=== PATIENT | female | born 1985 | race Caucasian/White ===

== ENCOUNTER 2018-09-08 23:06 | Emergency (ER) | payer OTHER ==
[2018-09-09 00:05] LABS: #Eosinphils 0.1 thou/uL (0.0-0.7); #Lymphocytes 2.3 thou/uL (1.20-3.40); #Monocytes 0.4 thou/uL (0.11-0.59); #Neutrophils 5.6 thou/uL (1.40-6.50); %Basophils 0.2 % (0.0-1.0); %Eosinophils 0.7 % (0.0-10.0); %Lymphocytes 27.2 % (21.0-51.0); %Monocytes 4.7 % (0.0-10.0); %Neutrophils 67.2 % (42.0-75.0); Hemoglobin 11.6 g/dL (12.0-16.0); Mean Corpuscular HGB CONC 34.4 g/dL (32.0-36.0); Mean Corpuscular Hemoglobin 29.3 pg (27.0-31.0); Mean Corpuscular Volume 85.1 fL (78.0-98.0); Mean Platelet Volume 7.1 fL (7.4-10.4); Platelet Count 261 thou/uL (130-400); RBC Distribution Width 13.2 % (11.5-14.5); Red Blood Cell (RBC) Count 3.95 mill/uL (4.20-5.40); White Blood Cell (WBC) Count 8.3 thou/uL (4.8-10.8)
[2018-09-09 01:17] LABS: Bilirubin Negative (Negative); Blood, Urine Moderate (Negative); Clarity CLEAR (Clear); Glucose, Urine (Dipstick) Negative (Negative); Leukocyte Small (Negative); Nitrite Negative (Negative); Protein, Urine (Dipstick) Negative (Neg-Trace); Specific Gravity, Urine 1.012 (1.002-1.036); Urobilinogen 0.2 mg/dL (0.2-1.0)
[2018-09-09 01:20] LABS: Bacteria/HPF Rare-Few HPF (None Seen); Hyaline Casts/LPF 0-3 HYALINE CAST LPF (0-3 Hyaline); Squamous Epithelial 0-3 HPF (0-3)
--- NOTE | 2018-09-09 07:42 | ULT ---
PELVIC ULTRASOUND WITH BLOOD SCALE AND DOPPLER COLOR FLOW IMAGING: Date: 09/09/18 CLINICAL HISTORY: Pelvic pain, vaginal bleeding. FINDINGS: There is evidence of an early, live intrauterine gestation, which by ultrasound imaging corresponds t o a 14 week and 4 day gestation. This places date of delivery by ultrasound at 03/06/19. Stated clini lindsay dates are 13 weeks. The gestation is demonstrated in a transverse lie on the provided views and t he placenta is located anteriorly. ALISHA is subjectively normal in volume. There is evidence to indicat e placenta previa with placental tissue seen traversing the site of the internal os. cardiac activity is documented at 152 beats/minute. IMPRESSION: 1. Live intrauterine gestation as discussed above. 2. There is evidence to indicate placenta previa. Recommend continued imaging follow-up. CODE T. POS: NWK
== END 2018-09-09 03:04 | disposition home or self-care (01) ==
LOC: ERS 23:06
DX: O20.0 Threatened abortion (principal); O44.11 Complete placenta previa with hemorrhage, first trimester; Z3A.13 13 weeks gestation of pregnancy
CPT/HCPCS: 36415; 76856; 81003; 81015; 84702; 85025; 86900; 86901; 90384; 96372

== ENCOUNTER 2018-10-14 10:52 | Outpatient (CLI) | payer OTHER ==
--- NOTE | 2018-10-14 13:32 | ULT ---
ULTRASOUND OBSTETRICAL COMPLETE: DATE: 10/14/18 HISTORY: 33-year-old female follow-up placenta previa and evaluate anatomy. FINDINGS: number: [place]. lie: Transverse. Maternal cervix: 5.5 cm in length and closed. Placenta: Anterior. No placenta previa. The previously demonstrated placenta covering the internal ce rvical os has now migrated superiorly, such that the distal tip of the placenta is approximately 5.5 cm from the internal os. Amniotic fluid volume: Subjectively within normal limits. heart rate: 144 bpm. The following anatomy is visualized, with no evidence of anomalies: Urinary bladder, stomach, spine, head, upper limbs, and lower limbs. The rest of the anatomy is very poorly visualized because of maternal body habitus. biometry: Head circumference (HC): 16.7 cm 19w 3d Biparietal diameter (BPD): 4.4 cm 19w 2d Abdominal circumference (AC): 14.2 cm 19w 4d Femur length (FL): 3.1 cm 19w 4d Average ultrasound age (AUA): 19w 2d. Estimated date of delivery (JAYLON): 03/08/2019. Last menstrual period (LMP): 06/10/2018. Gestational age by LMP: 18w 0d. Estimated weight (EFW): 299 g +/- 44 g (0 lb 11 oz +/- 2 oz). IMPRESSION: 1. Live second trimester intrauterine gestation. 2. Estimated gestational age of 19 weeks, 2 days. 3. Transverse lie. 4. Interval resolution of the placenta previa after superior migration of the anterior placenta. 5. Poor visualization of anatomy due to maternal body habitus. AMANDA Aggarwal POS: VERNONC
== END 2018-10-14 10:53 | disposition home or self-care (01) ==
LOC: ULT 10:52
PROVIDERS: ATTEND Family Medicine
DX: Z34.82 Encounter for supervision of other normal pregnancy, second trimester (principal); Z3A.19 19 weeks gestation of pregnancy; O32.2XX0 Maternal care for transverse and oblique lie, not applicable or unspecified
CPT/HCPCS: 76805

== ENCOUNTER 2018-11-28 12:51 | Outpatient (CLI) | payer OTHER | END 2018-11-28 12:52 | disposition home or self-care (01) | LOC: ULT 12:51 | PROVIDERS: ATTEND Family Medicine | DX: R00.2 Palpitations (principal); I08.8 Other rheumatic multiple valve diseases | CPT/HCPCS: 93306 ==

== ENCOUNTER 2019-01-30 06:31 | Outpatient (CLI) | payer OTHER ==
--- NOTE | 2019-01-30 07:49 | ULT ---
EXAM: OB ultrasound COMPARISON: None HISTORY: female with size greater than dates. TECHNIQUE: Multiplanar grayscale and color Doppler images were obtained in a transabdominal ult rasound. FINDINGS: There is a single live intrauterine with heart rate of 140 bpm. A survey wa s performed which is unremarkable. Estimated weight is 3250 g. Average age of the fetus based off today's examination is 37 weeks 6 days. BPD 9.30 cm -- 37 weeks 6 days HC 34.35 cm -- 39 weeks 5 days AC 34.25 cm -- 38 weeks 2 days FL 6.84 cm -- 35 weeks 1 day The placenta is anterior in location without focal abnormality. ALISHA is 29.35 cm which is normal. The cervix is normal in length. There is no evidence of placenta previa. IMPRESSION: 1. Single live intrauterine with estimated age of 37 weeks 6 days. There is slight discrepa ncy in the biometric measurements but these are still within normal limits per standard deviations. 2. Prominent amniotic fluid volume
== END 2019-01-30 06:32 | disposition home or self-care (01) ==
LOC: BICULT 06:31
PROVIDERS: ATTEND Family Medicine
DX: O24.415 Gestational diabetes mellitus in pregnancy, controlled by oral hypoglycemic drugs (principal); Z3A.37 37 weeks gestation of pregnancy
CPT/HCPCS: 76805

== ENCOUNTER 2019-02-03 19:35 | Inpatient (IN) | payer OTHER ==
[2019-02-03 20:05] VITALS: BMI 45.6
[2019-02-03] MEDS ORDERED: Lactated Ringer's 1,000 ML IV SCH (20:15)
--- NOTE | 2019-02-03 20:17 | PDOC.LDHP ---
Labor and Delivery H&P Chief complaint: contractions HPI: 33 y/o at 34w0d, patient of Dr. Isabella Crawford, presents with contractions and pressure since 11am. Denies VB, LOF, or decreased FM. Had an ultrasound Wednesday and baby is measuring 38 weeks with polyhydramnios. ROS neg for HEENT, CV, pulm, GI, , neuro, psych, skin, musculoskeletal, or constitutional symptoms other than mentioned above. OB History Details: Hx gestational HTN with previous 2 prior SVDs Current complications: gestational diabetes, other (polyhydramnios) Past Medical History: HSV - last outbreak in October. Denies prodromal symptoms Current medications: pre-rosalie vitamins, other (ASA 81mg, Acyclovir) Previous surgical history: none Allergies/Adverse Reactions: Allergies Allergy/AdvReac Type Severity Reaction Status Date / Time No Known Drug Allergies Allergy Verified 02/03/19 20:07 Social history: none - Physical Exam Abnormal vital signs: normal to mild range BPs General: NAD, resting Lungs: nonlabored breathing Abdomen: gravid Extremeties: no edema FHT: category 1 (140s, mod variability, + accels, no decels) [place] contractions every: 2-3 mins - Vaginal Exam cm dilated: 3 (vtx, no visible HSV lesions) Effacement: 50% Station: -3 - OB Labs Blood type: A RH: negative Antibody Screen: negative GBS: positive - Assessment L&D Assessment: labor - Plan Plan: admit to L&D, GBS antibiotic prophylaxis -: PIH labs pending If blood sugars are reasonable, will give celestone Continue to monitor.
[2019-02-03 20:18] LABS: #Basophils 0.1 thou/uL (0.0-0.2); #Eosinphils 0.1 thou/uL (0.0-0.7); #Lymphocytes 1.8 thou/uL (1.20-3.40); #Monocytes 0.6 thou/uL (0.11-0.59); #Neutrophils 7.1 thou/uL (1.40-6.50); %Basophils 0.7 % (0.0-1.0); %Lymphocytes 18.8 % (21.0-51.0); %Monocytes 5.9 % (0.0-10.0); %Neutrophils 73.6 % (42.0-75.0); Hemoglobin 11.9 g/dL (12.0-16.0); Mean Corpuscular HGB CONC 35.8 g/dL (32.0-36.0); Mean Corpuscular Hemoglobin 32.6 pg (27.0-31.0); Mean Corpuscular Volume 90.9 fL (78.0-98.0); Mean Platelet Volume 7.7 fL (7.4-10.4); Platelet Count 244 thou/uL (130-400); RBC Distribution Width 15.2 % (11.5-14.5); Red Blood Cell (RBC) Count 3.65 mill/uL (4.20-5.40); White Blood Cell (WBC) Count 9.7 thou/uL (4.8-10.8)
[2019-02-03] MEDS ORDERED: Ondansetron PF 4 MG/2 ML Vial IVP PRN (20:33)
[2019-02-03] MEDS ORDERED: hydrALAZINE 20 MG/ML VIAL SLOW IVP PRN (20:33)
[2019-02-03] MEDS ORDERED: Acetaminophen 500 MG TAB PO PRN (20:33)
[2019-02-03] MEDS ORDERED: Promethazine HCl 25 MG/ML VIAL IM PRN (20:33)
[2019-02-03] MEDS ORDERED: Misoprostol 200 MCG TAB PR PRN (20:39)
[2019-02-03] MEDS ORDERED: Diphenoxylate HCl/Atropine Tablet PO PRN ×2 (20:39)
[2019-02-03] MEDS ORDERED: NS / Oxytocin 40 units/1000ml 1,000 ML IV PRN (20:39)
[2019-02-03] MEDS ORDERED: Ibuprofen 800 MG TAB PO PRN (20:39)
[2019-02-03] MEDS ORDERED: Lidocaine 1% (PF) 30 ML VIAL SC PRN (20:39)
[2019-02-03] MEDS ORDERED: HYDROcodone/Acetaminophen 5/325 mg Tablet PO PRN ×2 (20:39)
[2019-02-03] MEDS ORDERED: Carboprost 250 MCG/ML AMP IM PRN (20:39)
[2019-02-03] MEDS ORDERED: Penicillin G Potassium 5 MILL.UNITS in Sodium Chloride 0.9% 100 ML IVPB SCH (20:45)
[2019-02-03 20:49] LABS: ALT (SGPT) 10 U/L (8-55); AST (SGOT) 12 U/L (5-34); Albumin 3.4 g/dL (3.5-5.0); Alkaline Phosphatase 84 U/L (40-150); Anion Gap 15 mmol/L (10-20); BUN (Urea Nitrogen) 10 mg/dL (7.0-18.7); Bilirubin, Total 0.4 mg/dL (0.2-1.2); Calc. Creatinine Clearance 253 mL/min (70-130); Calcium 9.1 mg/dL (7.8-10.44); Carbon Dioxide 18 mmol/L (22-29); Chloride 105 mmol/L (98-107); Estimated GFR-MDRD Greater than 90; Globulin 3.2 g/dL (2.4-3.5); Glucose 109 mg/dL (70-105); Potassium 3.8 mmol/L (3.5-5.1); Protein, Total 6.6 g/dL (6.0-8.3); Sodium 134 mmol/L (136-145)
[2019-02-03 20:59] LABS: Creatinine, Urine 182.76 mg/dL (47-110)
[2019-02-03] MEDS: Betamet Acet/Betamet Na Ph 30 MG/5 ML VIAL IM SCH (21:14)
[2019-02-03] MEDS ORDERED: Butorphanol Tartrate 1 MG/ML VIAL SLOW IVP PRN (22:37)
[2019-02-03 22:40] LABS: Syphilis Antibody Nonreactive (Nonreactive); Syphilis Antibody Index 0.09 S/CO (<1.00 Non-Reactive)
[2019-02-03] MEDS: Lactated Ringer's 1,000 ML IV SCH (22:55)
[2019-02-03 23:51] LABS: HBSAg Index 0.24 S/CO (0-0.99); Hep B Surf Ag Non-Reactive S/CO (NonReactive)
[2019-02-04] MEDS ORDERED: Terbutaline Sulfate 1 MG/ML VIAL SC SCH (01:00)
[2019-02-04] MEDS: Penicillin G 2.5 MILL.units 2.5 MILL.UNITS in Premix Bag 1 BAG IVPB SCH ×5 (01:02→21:15)
--- NOTE | 2019-02-04 07:18 | PDOC.EVN ---
Event Note - Event Note Event Note: Patient reports her ctx have slowed down overnight but still has periods of regular, painful ctx. Denies VB, LOF, or other concerns. AFVSS, 1 severe range BP overnight was noted to have cuff over elbow. Repeats all normal. Gen - AAO, NAD Abd - soft, NTTP Ext - no edema A/P: Will receive second dose of steroids this evening. Continue to monitor. Will repeat SVE if necessary. If no change, will consider d/c PCN for now.
[2019-02-04] MEDS: Lactated Ringer's 1,000 ML IV SCH (07:36)
[2019-02-04] MEDS ORDERED: metFORMIN 500 MG TAB PO SCH (08:00)
--- NOTE | 2019-02-04 08:19 | PDOC.EVN ---
Event Note - Event Note Event Note: Patient having painful ctx, felt that Stadol did not help. Will give 1 dose of terbutaline for symptomatic treatment.
--- NOTE | 2019-02-04 08:31 | PDOC.EVN ---
Event Note - Event Note Event Note: S: Reviewed plan of care with patient. Still feeling contractions but not making change and able to hold a conversation through them without difficulty. All questions answered. O: VSS Glucose: 122 0600 FHT: baseline 130, accels present, good variability [place]: cxs q 2-4 A/P Will check a1c 2/2 macrosomia, 3250g at 34 weeks 2nd dose of celestone will be tonight, will check sugars throughout the day increased metformin to 500mg BID will monitor sugars closely throughout the day, consistent carb diet /-3 at 0730, no change
[2019-02-04 09:10] LABS: Hemoglobin A1c 4.8 % (4.0-6.0)
[2019-02-04] MEDS: metFORMIN 500 MG TAB PO SCH ×2 (09:31→19:08)
--- NOTE | 2019-02-04 19:12 | PDOC.EVN ---
Event Note - Event Note Event Note: OBGYN No new complaints, some few CTX Sugars stable FHTs wnl Next celestone this PM Likely home tomorrow AM
[2019-02-04] MEDS: Betamet Acet/Betamet Na Ph 30 MG/5 ML VIAL IM SCH (21:22)
--- NOTE | 2019-02-04 21:52 | PDOC.EVN ---
Event Note - Event Note Event Note: Sugar check: Sugars ok
[2019-02-05 03:05] VITALS: BP 133/68; TEMP 98.3
--- NOTE | 2019-02-05 06:15 | PDOC.EVN ---
Event Note - Event Note Event Note: 02/05/19 DC note 0615 APU2 Patient seen at bedside. BPs ok Sugars ok OK for discharge to home Metformin to continue at 500mg po BID F/U with Isabella Salgado in one week DX: Arrested PTL at 34 weeks Gestational DM Obesity Early macrosomia/polyhydramnios Disposition: Home, f/u one week Discharge dictation done
--- NOTE | 2019-02-05 06:28 | DIS ---
DATE OF ADMISSION: 02/03/2019 DATE OF DISCHARGE: 02/05/2019 This is a patient of Dr. Isabella Crawford. PRINCIPAL DIAGNOSES: 1. Gestational hypertension on metformin. 2. Arrested labor. 3. Multigravida. 4. Suspected early macrosomia. PRINCIPAL PROCEDURES: External monitoring and steroid administration for lung maturation. IN BRIEF/HOSPITAL COURSE: This is a 33-year-old, G3, P2, who was admitted at 34 weeks 0 days, who is a patient of Dr. Isabella Crawford, who presented with contractions with Dr. Tegan Blackburn. She denied leakage of fluid or vaginal bleeding, but it is important to note that she had a recent ultrasound that showed the baby was measuring 38 weeks with polyhydramnios. The baby was weighing 3250 g, which is over 90th percentile. She does have a history of 2 prior vaginal deliveries and also has a history of gestational hypertension with the past . She has a history of HSV with the last outbreak in October, that is herpes simplex virus, but she denies any current prodromal symptoms. Other medications, although include aspirin at 81 mg, and she does take acyclovir. When she was admitted, her cervical exam was about 3 to 4 cm, 50% effaced, -3 station. She was admitted for steroid administration. To cover the glycemic effect of the steroids, her metformin, which was 500 mg once a day was increased to 500 mg twice a day. She was told to continue this for a week after discharge. I evaluated the patient both on 02/04/2019, and 02/05/2019, as she stayed in Labor and Delivery. On 02/05/2019, she was comfortable with decreased contractions and no evidence of bleeding or leakage of fluid. The plan was to send her home on 02/05/2019, at about 8 in the morning. DISCHARGE MEDICATIONS: Include her metformin 500 mg b.i.d. to continue at a twice a day dosing for 1 week and then return to once a day dosing as was originally scheduled by Dr. Crawford. DISPOSITION: Will be to home to follow up with Dr. Crawford in 1 week. She is also to check her sugars at home as she is already doing. In brief, this is the patient with arrested labor at over 34 weeks, sent home at 34 weeks 2 days with no evidence of labor progress. Blood pressures were normal during this admission. She does have a fetus that is early macrosomic with an estimated weight of 3250 g and polyhydramnios. This was also reviewed with her. Job ID: [id number]
== END 2019-02-05 06:35 | disposition home health service (06) | DRG 832 ==
LOC: L&D/OP 19:35 → L&D 21:31
PROVIDERS: ADMIT Family Medicine; ATTEND Family Medicine
PROC: 4A1HX4Z Monitoring of Products of Conception, Cardiac Electrical Activity, External Approach (ICD-10-PCS; principal; 2019-02-03)
DX: O60.03 Preterm labor without delivery, third trimester (principal); O98.513 Other viral diseases complicating pregnancy, third trimester; O24.415 Gestational diabetes mellitus in pregnancy, controlled by oral hypoglycemic drugs; O36.63X0 Maternal care for excessive fetal growth, third trimester, not applicable or unspecified; O40.3XX0 Polyhydramnios, third trimester, not applicable or unspecified; O99.820 Streptococcus B carrier state complicating pregnancy; B00.9 Herpesviral infection, unspecified; O99.213 Obesity complicating pregnancy, third trimester; E66.9 Obesity, unspecified; Z3A.34 34 weeks gestation of pregnancy
CPT/HCPCS: 36415; 36416; 80053; 82570; 83036; 84156; 85025; 86780; 86850; 86900; 86901; 87340; 99285; J0595; J0702; J2540; J3105; J3490

== ENCOUNTER 2019-02-13 14:36 | Inpatient (IN) | payer OTHER ==
[2019-02-13 15:08] VITALS: TEMP 98.9; BMI 45.7
[2019-02-13] MEDS ORDERED: HYDROcodone/Acetaminophen 5/325 mg Tablet PO PRN ×2 (15:30)
[2019-02-13] MEDS ORDERED: NS / Oxytocin 40 units/1000ml 1,000 ML IV PRN (15:30)
[2019-02-13] MEDS ORDERED: Ibuprofen 800 MG TAB PO PRN (15:30)
[2019-02-13] MEDS ORDERED: Lidocaine 1% (PF) 30 ML VIAL SC PRN (15:30)
[2019-02-13] MEDS ORDERED: Penicillin G Potassium 5 MILL.UNITS in Sodium Chloride 0.9% 100 ML IVPB SCH (15:30)
[2019-02-13] MEDS ORDERED: hydrALAZINE 20 MG/ML VIAL SLOW IVP PRN (15:30)
[2019-02-13] MEDS ORDERED: Ondansetron PF 4 MG/2 ML Vial IVP PRN (15:30)
[2019-02-13] MEDS ORDERED: Butorphanol Tartrate 1 MG/ML VIAL SLOW IVP PRN (15:30)
[2019-02-13] MEDS ORDERED: Promethazine HCl 25 MG/ML VIAL IM PRN (15:30)
--- NOTE | 2019-02-13 15:40 | PDOC.LDHP ---
Labor and Delivery H&P HPI: Patient of Isabella Salgado has requested the oncall OBGYN manage this admission CC: contractions at 35 weeks 3 days HPI: 33 yo at 35 weeks who was recently admitted 02/03-02/05 for same ( CTXs...was 3cm then). She receieved steroids last admission. HX GDM and was on metformin 500mg po BID to cover dstick changes from steroids. She has a history of herpes as well, on valtrex..no recent outbreak or symptoms.Sge was seen in office with Damian and was noted to be zoila. Sent for observation to L& D. No LOF Review of Systems: complete ROS completed and as per HPI Current gestational age (weeks): 35 (3 days) Dating criteria: last menstrual period Grav: 3 Para: 2 OB History Details: x 2 Current complications: gestational diabetes (on metformin) Current medications: pre-rosalie vitamins, other (metformin, low dose ASA, valtrex ) Allergies/Adverse Reactions: Allergies Allergy/AdvReac Type Severity Reaction Status Date / Time No Known Drug Allergies Allergy Verified 02/13/19 15:03 Social history: none - Physical Exam Vital signs reviewed and normal: yes General: NAD Heart: RRR Lungs: CTAB Abdomen: gravid Extremeties: no edema FHT: category 1 [place] contractions every: irregular, every 3-5 minutes - Vaginal Exam cm dilated: 3 Effacement: 50% Station: -3 - Assessment Threatened labor at 35 weeks 3 days; GDM, HX HSV...s/p steroids in past - Plan Plan: observation in L&D (we will observe for 23 hours. If no cervical change, may consider continued outpateint care. Continue Metformin 500mg po now Qd (was once a day). Follow BPs. Steroids already given.)
--- NOTE | 2019-02-13 15:47 | PDOC.EVN ---
Event Note - Event Note Event Note: Medication note: Will use metformin 500mg po BID
--- NOTE | 2019-02-13 16:08 | PDOC.EVN ---
Event Note - Event Note Event Note: SONO FROM 01/30: EFW was 94680 grams...thats 97% ALISHA...last sono: 29 (poly) If labors, would allow delivery as under 4500grams and ...need NICU at delivery. I will see if HbAic was done
--- NOTE | 2019-02-13 16:13 | PDOC.EVN ---
Event Note - Event Note Event Note: Hbaic friom 01/30/19 was 4.8 All this was discussed with her at bedside DX: baby early macrosomia GDM...on metformin (500 mg po BID) Valtrex to continue..for sxs HSV...last was october Polyhydramnios
[2019-02-13] MEDS: Lactated Ringer's 1,000 ML IV SCH ×2 (16:57→20:26)
[2019-02-13] MEDS ORDERED: metFORMIN 500 MG TAB PO SCH (17:00)
[2019-02-13 17:01] LABS: Hemoglobin 12.9 g/dL (12.0-16.0); Mean Corpuscular HGB CONC 36.3 g/dL (32.0-36.0); Mean Corpuscular Hemoglobin 33.1 pg (27.0-31.0); Mean Corpuscular Volume 91.1 fL (78.0-98.0); Mean Platelet Volume 8.1 fL (7.4-10.4); Platelet Count 252 thou/uL (130-400); RBC Distribution Width 15.6 % (11.5-14.5); Red Blood Cell (RBC) Count 3.89 mill/uL (4.20-5.40); White Blood Cell (WBC) Count 9.3 thou/uL (4.8-10.8)
[2019-02-13 17:20] LABS: Glucose Accucheck Confirmation 77 mg/dl (70-105)
[2019-02-13 17:41] LABS: HBSAg Index 0.52 S/CO (0-0.99); HIV (1/2) Antibody/Antigen Non-Reactive (NonReactive); HIV 1/2 INDEX 0.08 S/CO (<1.00); Hep B Surf Ag Non-Reactive S/CO (NonReactive)
[2019-02-13 17:42] LABS: Syphilis Antibody Nonreactive (Nonreactive); Syphilis Antibody Index 0.09 S/CO (<1.00 Non-Reactive)
[2019-02-13 18:05] VITALS: BP 128/79
[2019-02-13] MEDS: Penicillin G 2.5 MILL.units 2.5 MILL.UNITS in Premix Bag 1 BAG IVPB SCH (21:44)
[2019-02-14] MEDS: Penicillin G 2.5 MILL.units 2.5 MILL.UNITS in Premix Bag 1 BAG IVPB SCH (02:46)
--- NOTE | 2019-02-14 06:44 | PDOC.EVN ---
Event Note - Event Note Event Note: DISCHARGE NOTE Admit date: 02/13/19 Discharge date: 02/14/19 Procedures: Nonstress test monitoring Labor observation Diagnosis: Gestational DM on medications Early macrosomia Polyhidramniois History genital herpes Threatened labor (arrested at 3cm) COURSE: Patient was admitted 02/13/19 for labor observation at 35 weeks. She was 3cm dilated which was the same as 02/03/19 but was kept due to polyhydramnios and early macrosomia. Recheck after overnight observation revealed no cervical progress, at 3cm. No Leakage of fluid, no vaginal bleeding noted. Steroids had been given previously. NST was reactive. Prior hemogobin A1c was normal at 4.8. Plan was to DC home with follow up with her provider in 48 hours.
== END 2019-02-14 07:00 | disposition home or self-care (01) | DRG 832 ==
LOC: L&D/OP 14:36 → L&D 17:58
PROVIDERS: ADMIT Family Medicine; ATTEND Family Medicine
DX: O60.03 Preterm labor without delivery, third trimester (principal); O98.513 Other viral diseases complicating pregnancy, third trimester; O99.820 Streptococcus B carrier state complicating pregnancy; O24.415 Gestational diabetes mellitus in pregnancy, controlled by oral hypoglycemic drugs; B00.9 Herpesviral infection, unspecified; O36.63X0 Maternal care for excessive fetal growth, third trimester, not applicable or unspecified; O40.3XX0 Polyhydramnios, third trimester, not applicable or unspecified; Z3A.35 35 weeks gestation of pregnancy
CPT/HCPCS: 36415; 36416; 82947; 83036; 85025; 86780; 86850; 86900; 86901; 87340; 87389; 99285; J2540; J3490

== ENCOUNTER 2019-02-28 04:45 | Inpatient (IN) | payer OTHER ==
[2019-02-28 05:15] VITALS: BMI 45.1
[2019-02-28] MEDS ORDERED: Penicillin G Potassium 5 MILL.UNITS VIAL ONE (05:17)
[2019-02-28 05:39] LABS: Mean Corpuscular HGB CONC 33.5 g/dL (32.0-36.0); Mean Corpuscular Hemoglobin 31.1 pg (27.0-31.0); Mean Corpuscular Volume 92.8 fL (78.0-98.0); Mean Platelet Volume 8.2 fL (7.4-10.4); Platelet Count 244 thou/uL (130-400); RBC Distribution Width 15.1 % (11.5-14.5); Red Blood Cell (RBC) Count 4.16 mill/uL (4.20-5.40)
[2019-02-28] MEDS ORDERED: Fentanyl 4 mcg/Bup 0.1% Cadd 100 ML ONE (05:40)
[2019-02-28] MEDS ORDERED: Lidocaine 1.5%/Epinephrine 1:200,000 5 ML AMPUL IJ ONE (05:57)
[2019-02-28] MEDS ORDERED: Penicillin G Potassium 5 MILL.UNITS in Sodium Chloride 0.9% 100 ML IVPB SCH (06:00)
[2019-02-28] MEDS ORDERED: Lidocaine 1% (PF) 30 ML VIAL SC PRN (06:00)
[2019-02-28] MEDS ORDERED: NS w/ Oxytocin 10 units 500 ML IV SCH ×2 (06:00)
[2019-02-28] MEDS ORDERED: Lactated Ringer's 1,000 ML IV SCH ×2 (06:01)
[2019-02-28] MEDS ORDERED: Butorphanol Tartrate 1 MG/ML VIAL SLOW IVP PRN (06:01)
[2019-02-28] MEDS ORDERED: Promethazine HCl 25 MG/ML VIAL IM PRN ×2 (06:01→06:42)
[2019-02-28] MEDS ORDERED: hydrALAZINE 20 MG/ML VIAL SLOW IVP PRN ×2 (06:01→15:17)
[2019-02-28] MEDS ORDERED: Ondansetron PF 4 MG/2 ML Vial IVP PRN ×3 (06:01→15:17)
[2019-02-28 06:15] LABS: Syphilis Antibody Nonreactive (Nonreactive); Syphilis Antibody Index 0.11 S/CO (<1.00 Non-Reactive)
[2019-02-28 06:18] LABS: HBSAg Index 0.27 S/CO (0-0.99); Hep B Surf Ag Non-Reactive S/CO (NonReactive)
[2019-02-28] MEDS ORDERED: Naloxone HCl 0.4 mg/ml Vial IVP PRN ×2 (06:42)
[2019-02-28] MEDS ORDERED: Lactated Ringer's 500 ML IV PRN (06:42)
[2019-02-28] MEDS ORDERED: diphenhydrAMINE 50 MG/ML VIAL IVP PRN (06:42)
[2019-02-28] MEDS ORDERED: ePHEDrine/0.9% NaCl/PF SYRINGE 50 mg/10 ml SLOW IVP PRN (06:42)
[2019-02-28] MEDS ORDERED: Acetaminophen 325 MG TAB PO PRN (06:42)
[2019-02-28] MEDS ORDERED: Fentanyl 4 mcg/Bupivacaine 0.1% Cassette 100 ML EPIDURAL SCH (06:45)
[2019-02-28] MEDS ORDERED: Communication Order-Pharmacy FS SCH (06:45)
[2019-02-28] MEDS ORDERED: Penicillin G 2.5 MILL.units 50 ML ONE (09:45)
[2019-02-28] MEDS: Penicillin G Potassium 2.5 MILL.UNITS in Sodium Chloride 0.9% 100 ML IVPB SCH ×2 (09:46→17:51)
[2019-02-28] MEDS ORDERED: Carboprost 250 MCG/ML AMP ONE (13:13)
[2019-02-28] MEDS ORDERED: NS / Oxytocin 40 units/1000ml 1,000 ML ONE ×3 (13:13→15:48)
[2019-02-28] MEDS ORDERED: Methylergonovine 0.2 MG/ML VIAL ONE (13:14)
[2019-02-28] MEDS ORDERED: Misoprostol 200 MCG TAB ONE (13:14)
[2019-02-28] MEDS ORDERED: HYDROcodone/Acetaminophen 5/325 mg Tablet PO PRN (15:17)
[2019-02-28] MEDS ORDERED: Bisacodyl 10 MG SUPP PR PRN (15:17)
[2019-02-28] MEDS ORDERED: Benzocaine-Menthol 82.5 ML CAN TOP PRN (15:17)
[2019-02-28] MEDS ORDERED: NS / Oxytocin 40 units/1000ml 1,000 ML IV SCH (15:17)
[2019-02-28] MEDS ORDERED: Milk Of Magnesia 30 ML UDCUP PO PRN (15:17)
[2019-02-28] MEDS ORDERED: Preparation H Ointment 28 GM TUBE PR PRN (15:17)
[2019-02-28] MEDS ORDERED: Acetaminophen/Codeine 30-300mg Tablet PO PRN (15:17)
[2019-02-28] MEDS ORDERED: diphenhydrAMINE 25 MG CAP PO PRN (15:17)
[2019-02-28] MEDS ORDERED: Lanolin Ointment 7 GM TUBE TOP PRN (15:17)
[2019-02-28] MEDS: Ferrous Sulfate 325 MG TAB PO SCH (17:50)
[2019-02-28] MEDS: Prenatal Vitamin 1 TAB PO SCH (17:50)
[2019-02-28] MEDS: Docusate Calcium (SURFAK) 240 MG CAP PO SCH ×2 (17:50→21:10)
[2019-02-28] MEDS: Ibuprofen 800 MG TAB PO SCH (18:05)
[2019-03-01] MEDS: Ibuprofen 800 MG TAB PO SCH ×4 (00:02→21:56)
[2019-03-01] MEDS: Ferrous Sulfate 325 MG TAB PO SCH ×2 (07:56→16:24)
[2019-03-01] MEDS: Prenatal Vitamin 1 TAB PO SCH (08:52)
[2019-03-01] MEDS: Docusate Calcium (SURFAK) 240 MG CAP PO SCH ×2 (08:52→21:56)
[2019-03-02 03:58] VITALS: TEMP 98.2
[2019-03-02] MEDS: Ibuprofen 800 MG TAB PO SCH (05:29)
[2019-03-02] MEDS: Ferrous Sulfate 325 MG TAB PO SCH (07:49)
[2019-03-02 08:24] VITALS: BP 129/75
[2019-03-02] MEDS: Docusate Calcium (SURFAK) 240 MG CAP PO SCH (11:23)
[2019-03-02] MEDS: Prenatal Vitamin 1 TAB PO SCH (11:23)
== END 2019-03-02 11:15 | disposition home or self-care (01) | DRG 806 ==
LOC: L&D/OP 04:45 → L&D 06:11 → 3SW 17:28
PROVIDERS: ADMIT Family Medicine; ATTEND Family Medicine
PROC: 10E0XZZ Delivery of Products of Conception, External Approach (ICD-10-PCS; principal; 2019-02-28)
PROC: 0HQ9XZZ Repair Perineum Skin, External Approach (ICD-10-PCS; 2019-02-28)
DX: O24.425 Gestational diabetes mellitus in childbirth, controlled by oral hypoglycemic drugs (principal); O98.52 Other viral diseases complicating childbirth; Z37.0 Single live birth; O40.3XX0 Polyhydramnios, third trimester, not applicable or unspecified; O36.63X0 Maternal care for excessive fetal growth, third trimester, not applicable or unspecified; O99.824 Streptococcus B carrier state complicating childbirth; B00.9 Herpesviral infection, unspecified; O70.0 First degree perineal laceration during delivery; Z3A.37 37 weeks gestation of pregnancy
CPT/HCPCS: 36415; 51702; 85027; 86780; 86850; 86900; 86901; 87340; 99285; J2001; J2210; J2540; J2590; J3490

== ENCOUNTER 2019-06-25 17:42 | Emergency (ER) | payer OTHER ==
--- NOTE | 2019-06-25 19:16 | RAD ---
CHEST TWO VIEWS: History: Cough. Comparison: 09-24-09 FINDINGS: Normal cardiac silhouette. The pulmonary vessels and hilum are normal. Costophrenic angles are clear. Interstitial opacities throughout the lung parenchyma with possible left perihilar alveolar infiltra te. No pneumothorax or osseous abnormalities. IMPRESSION: Interstitial and alveolar infiltrates. Continued surveillance to ensure resolution. POS: PPP
== END 2019-06-25 19:59 | disposition home or self-care (01) ==
LOC: ERS 17:42
DX: J18.9 Pneumonia, unspecified organism (principal); Z79.84 Long term (current) use of oral hypoglycemic drugs
CPT/HCPCS: 71046; 87804